=== PATIENT | female | born 1945 | race Caucasian/White ===

== ENCOUNTER → 2019-09-07 | Day surgery (SDC) | payer MEDICARE ==
[2019-09-05 16:04] LABS: BASOPHILS % 0.4 % (0.0-1.0); EOSINOPHILS % 0.1 % (0.0-6.0); HEMATOCRIT 37.9 % (34.2-44.1); HEMOGLOBIN 12.2 g/dL (12.0-16.0); LYMPHOCYTES % 18.4 % (18.0-39.1); MEAN CORPUSCULAR HEMOGLOBIN 27.9 pg (28-32); MEAN CORPUSCULAR HGB CONC 32.2 g/dL (31-35); MEAN CORPUSCULAR VOLUME 86.5 fL (81-99); MONOCYTES % 8.8 % (4.4-11.3); NEUTROPHILS # (AUTO) 7.8 (2.1-6.9); PLATELET COUNT 299 x10e3/uL (140-360); RED BLOOD COUNT 4.38 x10e6/uL (3.6-5.1); RED CELL DISTRIBUTION WIDTH 14.4 % (11.7-14.4)
[2019-09-05 16:14] LABS: INR 0.97; PROTHROMBIN TIME 13.4 seconds (11.9-14.5)
[2019-09-05 16:15] LABS: PARTIAL THROMBOPLASTIN TIME 39.3 seconds (23.8-35.5)
[2019-09-05 16:23] LABS: ALANINE AMINOTRANSFERASE 33 IU/L (0-55); ALBUMIN 4.2 g/dL (3.5-5.0); ALBUMIN/GLOBULIN RATIO 1.4 (0.8-2.0); ALKALINE PHOSPHATASE 152 IU/L (40-150); ANION GAP 17.8 mmol/L (8-16); BLOOD UREA NITROGEN 18 mg/dL (7-26); BUN/CREATININE RATIO 21 (6-25); CALCIUM 9.7 mg/dL (8.4-10.2); CARBON DIOXIDE 22 mmol/L (22-29); CHLORIDE 104 mmol/L (98-107); CREATININE, SERUM 0.85 mg/dL (0.57-1.11); EST GLOMERULAR FILTRATION RATE > 60 ML/MIN (60-); GLUCOSE 106 mg/dL (74-118); POTASSIUM 3.8 mmol/L (3.5-5.1); SODIUM 140 mmol/L (136-145)
--- NOTE | 2019-09-05 16:27 | Diagnostic Imaging Report ---
EXAMINATION: CHEST 2 VIEWS INDICATION: Pre-operative COMPARISON: None FINDINGS: LINES/TUBES:None LUNGS:The lungs are well-inflated. No focal consolidation or pulmonary edema. PLEURA:No pleural effusion or pneumothorax. MEDIASTINUM:The cardiomediastinal silhouette appears normal in size and shape. Atherosclerotic calcifications of the thoracic aorta. Postoperative findings of prior CABG. Coronary artery stent in place. BONES/SOFT TISSUES:No acute osseous injury. Sternotomy wires in place. Right proximal humerus anchor. ABDOMEN:No free air under the diaphragm. IMPRESSION: No focal pneumonia or pulmonary edema. Signed by: Pierre Douglas MD on 09/05/2019 4:25 PM
[~2019-09-07] MED LIST: AMLODIPINE BESYL5 MG PO; ASPIRIN81 MG PO; ATORVASTATIN CA20 MG PO; BRILINTA90 MG PO; CEFTRIAXONE SOD 1 GM/NS 50 ML 50 ML IV ONE; FENTANYL CITRATE/PF 100MCG/2 ML INJ ONE; HYDROCHLOROTHIA25 MG PO; LIDOCAINE HCL 2% LOCAL INJ 5 ML SDV VIAL INJ ONE; LOVENOX60 MG/0.6 SC; METOPROLOL SUCC25 MG PO; MINOCYCLINE HCL50 MG PO; NITROGLYCERIN1 EAC1 TOP; ONDANSETRON HCL INJ 2MG/ML 2ML 2 MG/ML VIAL ONE; PROPOFOL IV EMULSION 10 MG/ML 20 ML VIAL ONE; SEVOFLURANE INHAL SOLN 250 ML PEN BTL ONE
--- OUTSIDE RECORDS SUMMARY | 2019-09-07 08:15 | XMS REPORT | Summary of Care ---
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 No SOB, Rash, Urticaria or drop in BP Reddening ofSkin Iodinated Contrast- Oral Other - See Low 10/21/2011 And Iv Dye comments, Anxiety Morphine Itching, High 04/03/2010 Hallucination s Sulfa (Sulfonamide Itching 08/13/2016 Antibiotics) documented as of this encounter (statuses as of 03/30/2019) Medications End Date Status Medication Sig Dispensed Refills Start Date Active aspirin-calcium carbonate Take by 0 81 mg-300 mg calcium(777 mouth. mg) Tab Active atorvastatin 20 mg tablet Take 20 mg by 0 mouth. 6 Active Cholecalciferol, Vitamin Take 1 0 D3, 1,000 unit capsule capsule by mouth. Active hydroCHLOROthiazide 12.5 Take 12.5 mg 0 mg capsule by mouth. 6 Active nitroglycerin 0.[address] 0.4 mg 0 sublingual tablet tab under the 4 tongue every 5 minutes as needed. Active Omeprazole 20 mg tablet Take 20 mg by 0 mouth. 6 Active KCL 10 mEq tablet Take 10 mEq 0 by mouth. 6 Active ticagrelor (BRILINTA) 90 Take 100 mg 0 mg tablet by mouth 2 (two) times daily. Active Pantoprazole (PROTONIX) Take 40 mg by 0 40 mg delayed-release mouth daily. suspension Active amLODIPine 10 mg tablet Take 10 mg by 0 mouth daily. Active meloxicam (MOBIC) 15 mg Take 1 tablet 30 tablet 0 tablet by mouth 8 daily. Active traMADOL 50 mg tablet Take 50 mg by 0 mouth every 6 (six) hours as needed. documented as of this encounter (statuses as of 03/30/2019) Active Problems No known active problemsdocumented as of this encounter (statuses as of 03/30/2019) Immunizations Name Administration Dates Next Due Td 02/03/2019 documented as of this encounter Social History Date Tobacco Use Types Packs/Day Years Used Never Assessed Sex Assigned at Date Recorded Not on file Industry Job Start Date Occupation Not on file Not on file Not on file Travel End Travel History Travel Start No recent travel history available. documented as of this encounter Last Filed Vital Signs Not on filedocumented in this encounter Plan of Treatment Health Maintenance Due Date Last Done Comments HEPATITIS C (HCV) SCREEN 1945 MAMMOGRAM 1985 COLONOSCOPY 1995 Zoster Recombinant 1995 Vaccine (SHINGRIX) (1 of 2) Medicare Wellness Visit 2010 Osteoporosis Screening 2010 PNEUMOCOCCAL VACCINES 65+ 2010 (1 of 2 - PCV13) DTaP,Tdap,and Td Vaccines 02/04/2019 02/03/2019 (1 - Tdap) INFLUENZA VACCINE 04/16/2019 05/24/2014, 05/26/2013 (Retired version) documented as of this encounter Procedures Comments Procedure Name Priority Date/Time Associated Diagnosis REFERRAL- Routine 02/23/2019 REQUEST/RESPONSE 12:01 AM CDT documented in this encounter Results Not on filedocumented in this encounter Insurance Type Payer Benefit Subscriber ID Effective Phone Address Plan / Dates Group Medicare Adv PPO HUMANA - MANAGED MEDICARE HU[employer]NA [id number] 2017-P MEDICARE resent ERS documented as of this encounter
--- OUTSIDE RECORDS SUMMARY | 2019-09-07 08:16 | XMS REPORT ---
Author Author [facility] Address Unknown Phone Unavailable Care Team Providers Care Atmospheric Technician Name Role Phone Maia WALKER Unavailable Unavailable Payers Payer Name Policy Type Policy Number Effective Date Expiration Date Problems This patient has no known problems. Allergies, Adverse Reactions, Alerts Allergy Name Allergy Type Status Severity Reaction(s) Onset Date Inactive Date Treating Clinician Comments Iodinated Contrast- Oral and IV Dye DA Active [place] 2019-07-10 00:00:00 Sulfa (Sulfonamide Antibiotics) DA Active 2019-07-10 00:00:00 morphine DA Active 2019-07-10 00:00:00 codeine DA Active [place] 2019-07-10 00:00:00 clindamycin DA Active 2019-07-10 00:00:00 ciprofloxacin DA Active [place] 2019-07-10 00:00:00 ciprofloxacin DA Active [place] 2019-05-02 00:00:00 Iodinated Contrast- Oral and IV Dye DA Active [place] 2019-05-02 00:00:00 Sulfa (Sulfonamide Antibiotics) DA Active 2019-05-02 00:00:00 morphine DA Active 2019-05-02 00:00:00 clindamycin DA Active 2019-05-02 00:00:00 Sulfa (Sulfonamide Antibiotics) DA Active 2019-04-26 00:00:00 clindamycin DA Active 2019-04-26 00:00:00 Iodinated Contrast- Oral and IV Dye DA Active [place] 2013-05-24 00:00:00 morphine DA Active 2013-05-24 00:00:00 No Known Other Allergies DA Active U 2004-08-25 00:00:00 Medications This patient has no known medications. Results Test Description Test Time Test Comments Text Results Atomic Results Result Comments CHEST 2 VIEWS 2019-09-05 16:22:00 [place] [address] Patient Name: PRINCESS REAVES MR #: [id number] : 1945 Age/Sex: 74/F Req #: [id number] Adm Physician: Ordered by: ZULEYMA WALKER MD Report #: [id number] Location: OR Room/Bed: Procedure: [id number] DX/CHEST 2 VIEWS Exam Date: Exam Time: REPORT STATUS: Signed EXAMINATION: CHEST 2 VIEWS INDICATION: Pre-operative COMPARISON: None FINDINGS: LINES/TUBES:None LUNGS:The lungs are well- inflated. No focal consolidation or pulmonary edema. PLEURA:No pleural effusion or pneumothorax. MEDIASTINUM:The cardiomediastinal silhouette appears normal in size and shape. Atherosclerotic calcifications of the thoracic aorta. Postoperative findings of prior CABG. Coronary artery stent in place. BONES/SOFT TISSUES:No acute osseous injury. Sternotomy wires in place. Right proximal humerus anchor. ABDOMEN:No free air under the diaphragm. IMPRESSION: No focal pneumonia or pulmonary edema. Signed by: Key Wyatt MD on 09/05/2019 4:25 PM Dictated By: KEY WYATT MD Transcribed By: GIOVANNI on 09/05/19 162 COPY TO: ZULEYMA WALKER MD BASIC METABOLIC PANEL 2019-09-04 08:29:00 SODIUM (test code=NA) 139 mEq/L 134-147 POTASSIUM (test code=K) 4.0 mEq/L 3.4-5.0 CHLORIDE (test code=CL) 108 mEq/L 100-108 CARBON DIOXIDE (test code=CO2) 26 mEq/L 21-33 ANION GAP (test code=GAP) 9 0-20 GLUCOSE (test code=GLU) 88 mg/dL 70-110 BLOOD UREA NITROGEN (test code=BUN) 21 mg/dL 7-18 GLOMERULAR FILTRATION RATE (test code=GFR) 70.1 70-80 Units of measure=ml/min/1.73 m2 CREATININE (test code=CREAT) 0.8 mg/dL 0.6-1.3 CALCIUM (test code=CA) 9.0 mg/dL 8.0-10.5 CBC W/AUTO [id number] 07:33:00* Test Item Value Reference Range Comments WHITE BLOOD CELL (test code=WBC) 8.20 x10 3/uL 4.5-11.0 RED BLOOD CELL (test code=RBC) 4.05 x10 6/uL 3.54-5.02 HEMOGLOBIN (test code=HGB) 11.4 g/dL 11.0-15.0 HEMATOCRIT (test code=HCT) 35.0 % 33.0-45.0 MEAN CELL VOLUME (test code=MCV) 86.4 fL 81.0-99.0 MEAN CELL HGB (test code=MCH) 28.1 pg 27.0-33.0 MEAN CELL HGB CONCETRATION (test code=MCHC) 32.6 g/dL 33.0-37.0 RED CELL DISTRIBUTION WIDTH CV (test code=RDW) 14.3 % 11.5-14.5 RED CELL DISTRIBUTION WIDTH SD (test code=RDW-SD) 45.1 fL 37.0-54.0 PLATELET COUNT (test code=PLT) 273 x10 3/uL 150-400 MEAN PLATELET VOLUME (test code=MPV) 10.3 fL 7.0-9.0 NEUTROPHIL % (test code=NT%) 57.5 % 56.0-77.0 IMMATURE GRANULOCYTE % (test code=IG%) 0.4 % 0.0-2.0 LYMPHOCYTE % (test code=LY%) 32.2 % 14.0-32.0 MONOCYTE % (test code=MO%) 8.4 % 4.8-9.0 EOSINOPHIL % (test code=EO%) 1.0 % 0.3-3.7 BASOPHIL % (test code=BA%) 0.5 % 0.0-2.0 NUCLEATED RBC % (test code=NRBC%) 0.0 % 0-0 NEUTROPHIL # (test code=NT#) 4.72 x10 3/uL 2.0-7.6 IMMATURE GRANULOCYTE # (test code=IG#) 0.03 x10 3/uL 0.00-0.03 LYMPHOCYTE # (test code=LY#) 2.64 x10 3/uL 1.0-3.8 MONOCYTE # (test code=MO#) 0.69 x10 3/uL 0.1-0.8 EOSINOPHIL # (test code=EO#) 0.08 x10 3/uL 0.0-0.2 BASOPHIL # (test code=BA#) 0.04 x10 3/uL 0.0-0.2 NUCLEATED RBC # (test code=NRBC#) 0.00 x10 3/uL 0.0-0.1 MANUAL DIFF REQUIRED (test code=MDIFF) NO B-TYPE NATRIURETIC [id number] 09:45:00* Test Item Value Reference Range Comments B-TYPE NATRIURETIC PEPTIDE (test code=BNP) 105.6 PG/ML 0-100 [id number] 15:30:00* Test Item Value Reference Range Comments TROPONIN-I (test code=TROPI) < 0.015 ng/mL 0.000-0.045 Negative: <=0.045 Positive: >=0.046 Correlation with serial results, other cardiac markers andclinical findings is necessary to determine the clinicalsignificance of this result. Results using different methodologies should not be comparedto one another as quantitative results may vary by method. COMMENTS: 3 troponins total (including troponin done in ED)[id number] 12:26:00* Test Item Value Reference Range Comments TROPONIN-I (test code=TROPI) < 0.015 ng/mL 0.000-0.045 Negative: <=0.045 Positive: >=0.046 Correlation with serial results, other cardiac markers andclinical findings is necessary to determine the clinicalsignificance of this result. Results using different methodologies should not be comparedto one another as quantitative results may vary by method. COMMENTS: 3 troponins total (including troponin done in ED)B-TYPE NATRIURETIC [id number] 10:18:00* Test Item Value Reference Range Comments B-TYPE NATRIURETIC PEPTIDE (test code=BNP) 104.5 PG/ML 0-100 - XR CHEST 1 [id number] 10:14:00 FAX: Ronald Padron MD [phone] [place]: St: REG Name: PRINCESS HARDEN [facility] : [birth year] Age/S: 74/F [address] [place] [address] Unit #: [id number] Loc: [facility] [place] [address] Phys: Hadley Delcid MD Acct: [id number] Dis Date: Status: REG ER PHONE #: [phone] Exam Date: 09/02/2019937 FAX #: [phone] Reason: Weakness EXAMS: CPT CODE: [id number] XR CHEST 1 V 14021 EXAMINATION: Chest one view 09/02/2019 at 0934 hours. CLINICAL HISTORY: Weakness. COMP ARISON: Chest x-ray 08/15/2019. FINDINGS: The cardiomediastinal silhouette is within normal limits and stable in appearance. Pulmonary va sculature is within normal limits. The lungs are clear. Pos tsurgical hardware is evident projected over the right proximal humerus. Sternotomy wires are evident. IMPRESSION: No acute radiographic abnormalities in the chest. at 1014 Reported and signed by: Jewels Alfaro M.D. CC: Ronald Worley MD [facility] gist: VIVIAN Montero RT(R); Anna Major, RT(R) Trnscrd Date/Time/B y: 09/02/2019 (1014) : By: [facility] [place] [facility] Orig Print D/T: S: 09/02/2019 (06 01) PAGE 1 Signed Report COMPREHENSIVE METABOLIC [id number] 10:06:00* Test Item Value Reference Range Comments SODIUM (test code=NA) 140 mEq/L 134-147 POTASSIUM (test code=K) 3.7 mEq/L 3.4-5.0 CHLORIDE (test code=CL) 107 mEq/L 100-108 CARBON DIOXIDE (test code=CO2) 26 mEq/L 21-33 ANION GAP (test code=GAP) 11 0-20 GLUCOSE (test code=GLU) 115 mg/dL 70-110 BLOOD UREA NITROGEN (test code=BUN) 18 mg/dL 7-18 GLOMERULAR FILTRATION RATE (test code=GFR) 61.2 70-80 Units of measure=ml/min/1.73 m2 CREATININE (test code=CREAT) 0.9 mg/dL 0.6-1.3 TOTAL PROTEIN (test code=PROT) 7.8 g/dL 6.4-8.2 ALBUMIN (test code=ALB) 4.10 g/dL 3.4-5.0 CALCIUM (test code=CA) 9.5 mg/dL 8.0-10.5 BILIRUBIN TOTAL (test code=BILT) 0.5 MG/DL <1.5 SGOT/AST (test code=AST) 16 IUnit/L 15-37 SGPT/ALT (test code=ALT) 25 IUnit/L 15-65 ALKALINE PHOSPHATASE TOTAL (test code=ALKP) 155 IUnit/L 20-125 [id number] 10:06:00* Test Item Value Reference Range Comments TROPONIN-I (test code=TROPI) < 0.015 ng/mL 0.000-0.045 Negative: <=0.045 Positive: >=0.046 Correlation with serial results, other cardiac markers andclinical findings is necessary to determine the clinicalsignificance of this result. Results using different methodologies should not be comparedto one another as quantitative results may vary by method. - CT HEAD/BRAIN W/O [id number] 10:02:00 Name: PRINCESS REAVES [facility] : 1945 Age/S: 74 / F [address] [place] [address] Unit #: [id number] Loc: [place] [address] Phys: Hadley Delcid MD Acct: [id number] Dis Date: Status: REG ER PHONE #: [phone] Exam Date: 09/02/2019925 FAX #: [phone] Reason: NEAR SYNCOPE EXAMS: CPT CODE: [id number] CT HEAD/BRAIN W/O CONT 65250 STUDY: - CT HEAD/BRAIN W/O CONT 09/02/2019 9:08 AM Ordering Physician: Hadley Delcid MD Patient Name: PRINCESS REAVES MR: [id number] : 1945; Age: 74 years y/o Female Clinical Indication: NEAR SYNCOPE Comparison: None TECHNIQUE: Multiple contiguous transaxial noncontrast CT images were obtained through the head. Coronal and sagittal reformatted images were prepared. DOSE: CT imaging performed at this location utilizes radiation dose optimization technique which includes one or more of the followin) Automated exposure control; 2) Adjustment of the mA and/or kV according to patient's size; 3) Use of iterative reconstruction techniques. DLP (mGy-cm): 419 FINDINGS: BRAIN PARENCHYMA: Mild diffuse age-appropriate atrophy is present associated with mild nonspecific periventricular low attenuation most consistent with old microangiopathic ischemic change. 1.2 cm calc ified extra-axial lesion in the right posterior fossa along the right tent orium and mastoid segment of the temporal bone, favored to represent a men ingioma. No evidence of acute intracranial hemorrhage, mass lesion, mass effect, midline shift, or extra-axial fluid collection. VENTR ICLES: The lateral ventricles, third ventricle, fourth ventricle, and basi lar cisterns are appropriate for degree of atrophy present. PARANA CLOVIS SINUSES: The visualized portions of the paranasal sinuses are clear. MASTOIDS: Clear. ORBITS: The visualized portions of t he orbits are normal. SOFT TISSUES: No significant abnormality. PAGE 1 Signed Report (CONTIN UED) Name: PRINCESS REAVES [facility] Anitha Lozano : 1945 Age/S: 74 / F [address] [place] [address] Unit #: [id number] Loc: [place] [address] Phys: Hadley Aparicio MD Acct: [id number] Dis Date: Status: REG ER PHONE #: [phone] Exam Date: 09/02/2019925 FAX #: Reason: NEAR SYNCOPE EXAMS: CPT CODE: [id number] CT HEAD/ BRAIN W/O CONT 99397 <Continued> SKULL: No acute fracture or suspicious osseous lesion. IMPRESSION: 1. No acute intracranial abnormality. 2. Mild generalized volume loss and chronic small vessel ischemic changes in the supratentorial white matter. 3. 1.2 cm calcified mening ioma in the right posterior fossa. SL: CL [id number] at 1002 Reported and signed by: Matt Lloyd M.D. CC: Ronald Hall echnologist:Nicol Ramos, RT(R)(CT) CTDI: DLP: Trnscb Date /Time: 09/02/2019 (1002) [email or web address] Orig Print D/T: S: (1006) PAGE 2 Signed Report COMPREHENSIVE METABOLIC [id number] 09:45:00* Test Item Value Reference Range Comments SODIUM (test code=NA) 140 mEq/L 134-147 POTASSIUM (test code=K) 3.7 mEq/L 3.4-5.0 CHLORIDE (test code=CL) 107 mEq/L 100-108 CARBON DIOXIDE (test code=CO2) 26 mEq/L 21-33 ANION GAP (test code=GAP) 11 0-20 GLUCOSE (test code=GLU) 115 mg/dL 70-110 BLOOD UREA NITROGEN (test code=BUN) 18 mg/dL 7-18 GLOMERULAR FILTRATION RATE (test code=GFR) 61.2 70-80 Units of measure=ml/min/1.73 m2 CREATININE (test code=CREAT) 0.9 mg/dL 0.6-1.3 TOTAL PROTEIN (test code=PROT) 7.8 g/dL 6.4-8.2 ALBUMIN (test code=ALB) 4.10 g/dL 3.4-5.0 CALCIUM (test code=CA) 9.5 mg/dL 8.0-10.5 BILIRUBIN TOTAL (test code=BILT) MG/DL <1.5 SGOT/AST (test code=AST) 16 IUnit/L 15-37 SGPT/ALT (test code=ALT) 25 IUnit/L 15-65 ALKALINE PHOSPHATASE TOTAL (test code=ALKP) 155 IUnit/L 20-125 [id number] 09:45:00* Test Item Value Reference Range Comments TROPONIN-I (test code=TROPI) < 0.015 ng/mL 0.000-0.045 Negative: <=0.045 Positive: >=0.046 Correlation with serial results, other cardiac markers andclinical findings is necessary to determine the clinicalsignificance of this result. Results using different methodologies should not be comparedto one another as quantitative results may vary by method. COMPREHENSIVE METABOLIC [id number] 09:40:00* Test Item Value Reference Range Comments SODIUM (test code=NA) mEq/L 134-147 POTASSIUM (test code=K) mEq/L 3.4-5.0 CHLORIDE (test code=CL) mEq/L 100-108 CARBON DIOXIDE (test code=CO2) mEq/L 21-33 ANION GAP (test code=GAP) 0-20 GLUCOSE (test code=GLU) mg/dL 70-110 BLOOD UREA NITROGEN (test code=BUN) mg/dL 7-18 GLOMERULAR FILTRATION RATE (test code=GFR) 70-80 CREATININE (test code=CREAT) mg/dL 0.6-1.3 TOTAL PROTEIN (test code=PROT) g/dL 6.4-8.2 ALBUMIN (test code=ALB) g/dL 3.4-5.0 CALCIUM (test code=CA) mg/dL 8.0-10.5 BILIRUBIN TOTAL (test code=BILT) MG/DL <1.5 SGOT/AST (test code=AST) IUnit/L 15-37 SGPT/ALT (test code=ALT) IUnit/L 15-65 ALKALINE PHOSPHATASE TOTAL (test code=ALKP) IUnit/L 20-125 [id number] 09:40:00* Test Item Value Reference Range Comments TROPONIN-I (test code=TROPI) < 0.015 ng/mL 0.000-0.045 Negative: <=0.045 Positive: >=0.046 Correlation with serial results, other cardiac markers andclinical findings is necessary to determine the clinicalsignificance of this result. Results using different methodologies should not be comparedto one another as quantitative results may vary by method. CBC W/AUTO [id number] 09:32:00* Test Item Value Reference Range Comments WHITE BLOOD CELL (test code=WBC) 5.84 x10 3/uL 4.5-11.0 RED BLOOD CELL (test code=RBC) 4.45 x10 6/uL 3.54-5.02 HEMOGLOBIN (test code=HGB) 12.5 g/dL 11.0-15.0 HEMATOCRIT (test code=HCT) 38.7 % 33.0-45.0 MEAN CELL VOLUME (test code=MCV) 87.0 fL 81.0-99.0 MEAN CELL HGB (test code=MCH) 28.1 pg 27.0-33.0 MEAN CELL HGB CONCETRATION (test code=MCHC) 32.3 g/dL 33.0-37.0 RED CELL DISTRIBUTION WIDTH CV (test code=RDW) 14.4 % 11.5-14.5 RED CELL DISTRIBUTION WIDTH SD (test code=RDW-SD) 45.5 fL 37.0-54.0 PLATELET COUNT (test code=PLT) 291 x10 3/uL 150-400 MEAN PLATELET VOLUME (test code=MPV) 9.9 fL 7.0-9.0 NEUTROPHIL % (test code=NT%) 64.1 % 56.0-77.0 IMMATURE GRANULOCYTE % (test code=IG%) 0.3 % 0.0-2.0 LYMPHOCYTE % (test code=LY%) 27.7 % 14.0-32.0 MONOCYTE % (test code=MO%) 6.0 % 4.8-9.0 EOSINOPHIL % (test code=EO%) 1.0 % 0.3-3.7 BASOPHIL % (test code=BA%) 0.9 % 0.0-2.0 NUCLEATED RBC % (test code=NRBC%) 0.0 % 0-0 NEUTROPHIL # (test code=NT#) 3.74 x10 3/uL 2.0-7.6 IMMATURE GRANULOCYTE # (test code=IG#) 0.02 x10 3/uL 0.00-0.03 LYMPHOCYTE # (test code=LY#) 1.62 x10 3/uL 1.0-3.8 MONOCYTE # (test code=MO#) 0.35 x10 3/uL 0.1-0.8 EOSINOPHIL # (test code=EO#) 0.06 x10 3/uL 0.0-0.2 BASOPHIL # (test code=BA#) 0.05 x10 3/uL 0.0-0.2 NUCLEATED RBC # (test code=NRBC#) 0.00 x10 3/uL 0.0-0.1 MANUAL DIFF REQUIRED (test code=MDIFF) NO - XR CHEST 2 [id number] 12:17:00 FAX: Ronald Padron MD [phone] [place]: St: REG FAX: Aryan Hess MD [phone] Name: PRINCESS REAVES [facility] : 1945 Age/S: 74/F [address] [place] [address] Unit #: [id number] Loc: [place] [address] Phys: Aryan Murguia MD Acct: [id number] Dis Date: Status: REG CLI PHONE #: [phone] Exam Date: 08/15/2019 1214 FAX #: [phone] Reason: J44.9, COPD. EXAMS: CPT CODE: [id number] XR CHEST 2 V 09137 2 VIEW CXR HISTORY: COPD. Cough and fever. COMPARISON: 07/10/2019 chest x-ray. Mild flattening of the hemidiaphragms indicating pulmonary hyperinflation. No pleural a bnormalities. Lungs are free of infiltrate. Cardiomediastinal silhouette and bony thorax normal. Sternal suture wires in place. I MPRESSION: Pulmonary hyperinflation otherwise normal exam. END IMPRESSION [id number] Electronically Signed by Gabi Scott on 1 at 1217 Reported and signed by: Danyell Scott M.D. CC: Ronald Worley MD; Aryan Murguia MD Technologist: Malorie Ariza RT(R) Trnscrd Date/Time/By: 08/15/2019 (2797) : By: B Orig Print D/T : S: 08/15/2019 (6420) PAGE 1 Sig jordy Report BASIC METABOLIC [id number] 17:30:00* Test Item Value Reference Range Comments SODIUM (test code=NA) 141 mEq/L 134-147 POTASSIUM (test code=K) 4.1 mEq/L 3.4-5.0 CHLORIDE (test code=CL) 111 mEq/L 100-108 CARBON DIOXIDE (test code=CO2) 27 mEq/L 21-33 ANION GAP (test code=GAP) 7 0-20 GLUCOSE (test code=GLU) 100 mg/dL 70-110 BLOOD UREA NITROGEN (test code=BUN) 19 mg/dL 7-18 GLOMERULAR FILTRATION RATE (test code=GFR) 70.1 70-80 Units of measure=ml/min/1.73 m2 CREATININE (test code=CREAT) 0.8 mg/dL 0.6-1.3 CALCIUM (test code=CA) 8.8 mg/dL 8.0-10.5 BASIC METABOLIC [id number] 17:23:00* Test Item Value Reference Range Comments SODIUM (test code=NA) 141 mEq/L 134-147 POTASSIUM (test code=K) 4.1 mEq/L 3.4-5.0 CHLORIDE (test code=CL) 111 mEq/L 100-108 CARBON DIOXIDE (test code=CO2) 27 mEq/L 21-33 ANION GAP (test code=GAP) 7 0-20 GLUCOSE (test code=GLU) 100 mg/dL 70-110 BLOOD UREA NITROGEN (test code=BUN) 19 mg/dL 7-18 GLOMERULAR FILTRATION RATE (test code=GFR) 70-80 CREATININE (test code=CREAT) mg/dL 0.6-1.3 CALCIUM (test code=CA) 8.8 mg/dL 8.0-10.5 CBC W/AUTO [id number] 17:17:00* Test Item Value Reference Range Comments WHITE BLOOD CELL (test code=WBC) 8.34 x10 3/uL 4.5-11.0 RED BLOOD CELL (test code=RBC) 4.40 x10 6/uL 3.54-5.02 HEMOGLOBIN (test code=HGB) 12.1 g/dL 11.0-15.0 HEMATOCRIT (test code=HCT) 38.5 % 33.0-45.0 MEAN CELL VOLUME (test code=MCV) 87.5 fL 81.0-99.0 MEAN CELL HGB (test code=MCH) 27.5 pg 27.0-33.0 MEAN CELL HGB CONCETRATION (test code=MCHC) 31.4 g/dL 33.0-37.0 RED CELL DISTRIBUTION WIDTH CV (test code=RDW) 14.8 % 11.5-14.5 RED CELL DISTRIBUTION WIDTH SD (test code=RDW-SD) 47.1 fL 37.0-54.0 PLATELET COUNT (test code=PLT) 279 x10 3/uL 150-400 MEAN PLATELET VOLUME (test code=MPV) 9.9 fL 7.0-9.0 NEUTROPHIL % (test code=NT%) 65.6 % 56.0-77.0 IMMATURE GRANULOCYTE % (test code=IG%) 0.5 % 0.0-2.0 LYMPHOCYTE % (test code=LY%) 23.1 % 14.0-32.0 MONOCYTE % (test code=MO%) 9.2 % 4.8-9.0 EOSINOPHIL % (test code=EO%) 1.0 % 0.3-3.7 BASOPHIL % (test code=BA%) 0.6 % 0.0-2.0 NUCLEATED RBC % (test code=NRBC%) 0.0 % 0-0 NEUTROPHIL # (test code=NT#) 5.47 x10 3/uL 2.0-7.6 IMMATURE GRANULOCYTE # (test code=IG#) 0.04 x10 3/uL 0.00-0.03 LYMPHOCYTE # (test code=LY#) 1.93 x10 3/uL 1.0-3.8 MONOCYTE # (test code=MO#) 0.77 x10 3/uL 0.1-0.8 EOSINOPHIL # (test code=EO#) 0.08 x10 3/uL 0.0-0.2 BASOPHIL # (test code=BA#) 0.05 x10 3/uL 0.0-0.2 NUCLEATED RBC # (test code=NRBC#) 0.00 x10 3/uL 0.0-0.1 MANUAL DIFF REQUIRED (test code=MDIFF) NO TROPONIN-I [id number] 17:14:00* Test Item Value Reference Range Comments TROPONIN-I RAPID (test code=TROPIRAP) 0.01 ng/mL 0.00-0.08 Performed by certified mobile plant operators at [facility] Negative: <=0.08 Positive: >=0.09An elevated troponin value alone is not sufficient todiagnose a myocardial infarction. Rather, the patient sclinical presentation (history, physical exam) and ECGshould be used in conjunction with troponin in thediagnostic evaluation of suspected myocardial infarction. Aserial sampling protocol is recommended to facilitate the identification of temporal changes in troponin levels characteristic of [place]. - XR CHEST 1 [id number] 15:43:00 FAX: Ronald Padron MD [phone] [place]: St: PRE FAX: Anai Pat [phone] Name: PRINCESS REAVES [facility] : 1945 Age/S: 74/F [address] [place] [address] Unit #: [id number] Loc: [place] [address] Phys: Anai Melendez Acct: [id number] Dis Date: Status: PRE ER PHONE #: [phone] Exam Date: 07/10/2019 1537 FAX #: [phone] Reason: Chest Pain EXAMS: CPT CODE: [id number] XR CHEST 1 V 78724 CHEST, ONE VIEW: HISTORY: Acute chest pain. COMPARISON EXAM(S): Back to May 2013 FINDINGS: This single portable view was obtained at 1530 hours on 07/10/2019 and shows mild, stable cardiomegaly with postsurgical changes in the sternum and mediastinum. No acute infiltrates or effusions. Mild chronic pleural thickening along the right lateral pleural surface. No acute skeletal abnormality. An orthopedic anchor is projected over the right humeral head. IMPRESSION: 1. No acute changes. 2. Stable appearance of the chest compared to 05/02/2019. 3. Stable, mild cardiomegaly. SL:01 at 1543 Re ported and signed by: Escobar Natarajan M.D. CC: Ronald Del Rosario; Anai SANCHEZ Technologist: VIVIAN Montero RT(R) Trnscrd Date/Time/By: 07/10/2019 (3727) : By: Jolene Orig Print D/T: S: 07/10/2019 (1704) PAGE 1 Signed Report CBC W/AUTO DIFF 2019-05-03 08:08:00* Test Item Value Reference Range Comments WHITE BLOOD CELL (test code=WBC) 10.02 x10 3/uL 4.5-11.0 RED BLOOD CELL (test code=RBC) 4.08 x10 6/uL 3.54-5.02 HEMOGLOBIN (test code=HGB) 11.3 g/dL 11.0-15.0 HEMATOCRIT (test code=HCT) 36.2 % 33.0-45.0 MEAN CELL VOLUME (test code=MCV) 88.7 fL 81.0-99.0 MEAN CELL HGB (test code=MCH) 27.7 pg 27.0-33.0 MEAN CELL HGB CONCETRATION (test code=MCHC) 31.2 g/dL 33.0-37.0 RED CELL DISTRIBUTION WIDTH CV (test code=RDW) 15.0 % 11.5-14.5 RED CELL DISTRIBUTION WIDTH SD (test code=RDW-SD) 49.1 fL 37.0-54.0 PLATELET COUNT (test code=PLT) 321 x10 3/uL 150-400 MEAN PLATELET VOLUME (test code=MPV) 10.3 fL 7.0-9.0 NEUTROPHIL % (test code=NT%) 70.2 % 56.0-77.0 IMMATURE GRANULOCYTE % (test code=IG%) 0.6 % 0.0-2.0 LYMPHOCYTE % (test code=LY%) 18.6 % 14.0-32.0 MONOCYTE % (test code=MO%) 9.7 % 4.8-9.0 EOSINOPHIL % (test code=EO%) 0.6 % 0.3-3.7 BASOPHIL % (test code=BA%) 0.3 % 0.0-2.0 NUCLEATED RBC % (test code=NRBC%) 0.0 % 0-0 NEUTROPHIL # (test code=NT#) 7.04 x10 3/uL 2.0-7.6 IMMATURE GRANULOCYTE # (test code=IG#) 0.06 x10 3/uL 0.00-0.03 LYMPHOCYTE # (test code=LY#) 1.86 x10 3/uL 1.0-3.8 MONOCYTE # (test code=MO#) 0.97 x10 3/uL 0.1-0.8 EOSINOPHIL # (test code=EO#) 0.06 x10 3/uL 0.0-0.2 BASOPHIL # (test code=BA#) 0.03 x10 3/uL 0.0-0.2 NUCLEATED RBC # (test code=NRBC#) 0.00 x10 3/uL 0.0-0.1 MANUAL DIFF REQUIRED (test code=MDIFF) NO BASIC METABOLIC [id number] 07:50:00* Test Item Value Reference Range Comments SODIUM (test code=NA) 140 mEq/L 134-147 POTASSIUM (test code=K) 4.3 mEq/L 3.4-5.0 CHLORIDE (test code=CL) 109 mEq/L 100-108 CARBON DIOXIDE (test code=CO2) 25 mEq/L 21-33 ANION GAP (test code=GAP) 10 0-20 GLUCOSE (test code=GLU) 102 mg/dL 70-110 BLOOD UREA NITROGEN (test code=BUN) 13 mg/dL 7-18 GLOMERULAR FILTRATION RATE (test code=GFR) 70.1 70-80 Units of measure=ml/min/1.73 m2 CREATININE (test code=CREAT) 0.8 mg/dL 0.6-1.3 CALCIUM (test code=CA) 8.8 mg/dL 8.0-10.5 [id number] 23:07:00* Test Item Value Reference Range Comments TROPONIN-I (test code=TROPI) < 0.015 ng/mL 0.000-0.045 Negative: <=0.045 Positive: >=0.046 Correlation with serial results, other cardiac markers andclinical findings is necessary to determine the clinicalsignificance of this result. Results using different methodologies should not be comparedto one another as quantitative results may vary by method. COMMENTS: 3 troponins total (including troponin done in ED)[id number] 18:02:00* Test Item Value Reference Range Comments TROPONIN-I (test code=TROPI) < 0.015 ng/mL 0.000-0.045 Negative: <=0.045 Positive: >=0.046 Correlation with serial results, other cardiac markers andclinical findings is necessary to determine the clinicalsignificance of this result. Results using different methodologies should not be comparedto one another as quantitative results may vary by method. COMMENTS: 3 troponins total (including troponin done in ED)B-TYPE NATRIURETIC [id number] 16:13:00* Test Item Value Reference Range Comments B-TYPE NATRIURETIC PEPTIDE (test code=BNP) 131.2 PG/ML 0-100 URINALYSIS [id number] 16:12:00* Test Item Value Reference Range Comments UA COLOR (test code=COLU) YELLOW YEL/STRAW UA APPEARANCE (test code=APPU) CLEAR CLEAR UA GLUCOSE DIPSTICK (test code=DGLUU) NEGATIVE NEGATIVE UA BILIRUBIN DIPSTICK (test code=BILU) NEGATIVE NEGATIVE UA KETONE DIPSTICK (test code=KETU) NEGATIVE NEGATIVE UA SPECIFIC GRAVITY (test code=SGU) 1.009 1.005-1.030 UA BLOOD DIPSTICK (test code=CARLYLE) 1+ NEGATIVE UA PH DIPSTICK (test code=ADILENE) 5.0 5.0-7.0 UA PROTEIN DIPSTICK (test code=PROU) NEGATIVE NEGATIVE UA UROBILINIOGEN DIPSTICK (test code=URO) 0.2 mg/dL 0.2-1.0 UA NITRITE DIPSTICK (test code=ASHOK) NEGATIVE NEGATIVE UA LEUKOCYTE ESTERASE DIPSTICK (test code=LEUU) NEGATIVE NEGATIVE UA RBC (test code=RBCU) 4-10 RBC/HPF 0-3 UA WBC NO REFLEX (test code=WBCUCL) 0-3 WBC/HPF 0-3 UA BACTERIA (test code=BACU) NONE SEEN /HPF NONE SEEN UA SQUAMOUS CELLS (test code=SQU) 0-5 /HPF NONE SEEN UA MUCUS (test code=MUCU) TRACE /LPF NONE SEEN BASIC METABOLIC [id number] 16:09:00* Test Item Value Reference Range Comments SODIUM (test code=NA) 139 mEq/L 134-147 POTASSIUM (test code=K) 3.9 mEq/L 3.4-5.0 CHLORIDE (test code=CL) 106 mEq/L 100-108 CARBON DIOXIDE (test code=CO2) 26 mEq/L 21-33 ANION GAP (test code=GAP) 11 0-20 GLUCOSE (test code=GLU) 111 mg/dL 70-110 BLOOD UREA NITROGEN (test code=BUN) 16 mg/dL 7-18 GLOMERULAR FILTRATION RATE (test code=GFR) 70.1 70-80 Units of measure=ml/min/1.73 m2 CREATININE (test code=CREAT) 0.8 mg/dL 0.6-1.3 CALCIUM (test code=CA) 9.3 mg/dL 8.0-10.5 [id number] 16:09:00* Test Item Value Reference Range Comments LIPASE (test code=LIP) 307 IUnit/L 73-393 [id number] 16:09:00* Test Item Value Reference Range Comments TROPONIN-I (test code=TROPI) < 0.015 ng/mL 0.000-0.045 Negative: <=0.045 Positive: >=0.046 Correlation with serial results, other cardiac markers andclinical findings is necessary to determine the clinicalsignificance of this result. Results using different methodologies should not be comparedto one another as quantitative results may vary by method. CBC W/AUTO [id number] 15:50:00* Test Item Value Reference Range Comments WHITE BLOOD CELL (test code=WBC) 10.95 x10 3/uL 4.5-11.0 RED BLOOD CELL (test code=RBC) 4.56 x10 6/uL 3.54-5.02 HEMOGLOBIN (test code=HGB) 12.4 g/dL 11.0-15.0 HEMATOCRIT (test code=HCT) 39.7 % 33.0-45.0 MEAN CELL VOLUME (test code=MCV) 87.1 fL 81.0-99.0 MEAN CELL HGB (test code=MCH) 27.2 pg 27.0-33.0 MEAN CELL HGB CONCETRATION (test code=MCHC) 31.2 g/dL 33.0-37.0 RED CELL DISTRIBUTION WIDTH CV (test code=RDW) 14.9 % 11.5-14.5 RED CELL DISTRIBUTION WIDTH SD (test code=RDW-SD) 47.8 fL 37.0-54.0 PLATELET COUNT (test code=PLT) 362 x10 3/uL 150-400 MEAN PLATELET VOLUME (test code=MPV) 10.0 fL 7.0-9.0 NEUTROPHIL % (test code=NT%) 76.7 % 56.0-77.0 IMMATURE GRANULOCYTE % (test code=IG%) 0.8 % 0.0-2.0 LYMPHOCYTE % (test code=LY%) 14.0 % 14.0-32.0 MONOCYTE % (test code=MO%) 7.6 % 4.8-9.0 EOSINOPHIL % (test code=EO%) 0.5 % 0.3-3.7 BASOPHIL % (test code=BA%) 0.4 % 0.0-2.0 NUCLEATED RBC % (test code=NRBC%) 0.0 % 0-0 NEUTROPHIL # (test code=NT#) 8.40 x10 3/uL 2.0-7.6 IMMATURE GRANULOCYTE # (test code=IG#) 0.09 x10 3/uL 0.00-0.03 LYMPHOCYTE # (test code=LY#) 1.53 x10 3/uL 1.0-3.8 MONOCYTE # (test code=MO#) 0.83 x10 3/uL 0.1-0.8 EOSINOPHIL # (test code=EO#) 0.06 x10 3/uL 0.0-0.2 BASOPHIL # (test code=BA#) 0.04 x10 3/uL 0.0-0.2 NUCLEATED RBC # (test code=NRBC#) 0.00 x10 3/uL 0.0-0.1 MANUAL DIFF REQUIRED (test code=MDIFF) NO TROPONIN-I [id number] 15:34:00* Test Item Value Reference Range Comments TROPONIN-I RAPID (test code=TROPIRAP) 0.00 ng/mL 0.00-0.08 Performed by certified mobile plant operators at [facility] Negative: <=0.08 Positive: >=0.09An elevated troponin value alone is not sufficient todiagnose a myocardial infarction. Rather, the patient sclinical presentation (history, physical exam) and ECGshould be used in conjunction with troponin in thediagnostic evaluation of suspected myocardial infarction. Aserial sampling protocol is recommended to facilitate the identification of temporal changes in troponin levels characteristic of [place]. CHEMISTRY 8 [id number] 15:34:00* Test Item Value Reference Range Comments ISTAT-SODIUM (test code=NAP) MMOL/L 134-147 ISTAT-POTASSIUM (test code=KP) MMOL/L 3.4-5.0 ISTAT-CHLORIDE (test code=CLP) MMOL/L 100-108 ISTAT CARBON DIOXIDE (test code=ISTAT-CO2) mmol/L 21-33 ISTAT CALCIUM IONIZED (test code=ISTAT-MALINI) MG/DL 1.12-1.32 ISTAT-GLUCOSE (test code=GLUP) MG/DL 70-110 ISTAT-BUN (test code=BUNP) MG/DL 7-18 BEDSIDE CREATININE (test code=CREATBED) MG/DL 0.6-1.3 GLOMERULAR FILTRATION RATE POC (test code=GFRBED) 75 ML/MIN CHEMISTRY 8 [id number] 15:34:00* Test Item Value Reference Range Comments ISTAT-SODIUM (test code=NAP) 138 MMOL/L 134-147 ISTAT-POTASSIUM (test code=KP) 4.1 MMOL/L 3.4-5.0 ISTAT-CHLORIDE (test code=CLP) 103 MMOL/L 100-108 Performed by certified mobile plant operators at [facility] ISTAT CARBON DIOXIDE (test code=ISTAT-CO2) 23.0 mmol/L 21-33 ISTAT CALCIUM IONIZED (test code=ISTAT-MALINI) 1.12 MG/DL 1.12-1.32 ISTAT-GLUCOSE (test code=GLUP) 112 MG/DL 70-110 ISTAT-BUN (test code=BUNP) 15 MG/DL 7-18 BEDSIDE CREATININE (test code=CREATBED) 0.8 MG/DL 0.6-1.3 GLOMERULAR FILTRATION RATE POC (test code=GFRBED) 75 ML/MIN - XR CHEST 1 [id number] 14:30:00 FAX: Ronald Padron MD [phone] [place]: St: PRE FAX: Rizwan Tipton MD [phone] Name: PRINCESS REAVES [facility] : 1945 Age/S: 74/F [address] [place] [address] Unit #: [id number] Loc: [place] [address] Phys: Rizwan Tipton MD Acct: [id number] Dis Date: Status: PRE ER PHONE #: [phone] Exam Date: 05/02/2019 1424 FAX #: [phone] Reason: Chest Pain EXAMS: CPT CODE: [id number] XR CHEST 1 V 27497 CHEST, ONE VIEW: HISTORY: Acute chest pain. COMPARISON EXAM(S): Back to May 2013 FINDINGS: This single portable view was obtained at 1421 hours on 05/02/2019 and shows mild, stable cardiomegaly with postsurgical changes noted in the sternum. No acute infiltrates, effusions or pneumothorax. Chronic pleural thickening is noted along the right lateral pleural surface. Orthopedic anchor is projected through the right humeral head. No acute skeletal ab normalities. IMPRESSION: 1. No acute c hanges. 2. Stable appearance of the chest dating back to August 2018. 3. Stable, mild cardiomegaly. SL:01 at 1430 Reported and signed by: Escobar Natarajan M.D. CC: Ronald Worley MD; Rizwan Tipton MD Technologist: RT Onel(R) Trnscrd Date/Time/By: 05/02/2019 ( 1430) : By: Jolnee Orig Print D/T: S: 05/02/2019 (5333) PAGE 1 Signed Report BASIC METABOLIC [id number] 05:19:00* Test Item Value Reference Range Comments SODIUM (test code=NA) 139 mEq/L 134-147 POTASSIUM (test code=K) 3.6 mEq/L 3.4-5.0 CHLORIDE (test code=CL) 108 mEq/L 100-108 CARBON DIOXIDE (test code=CO2) 23 mEq/L 21-33 ANION GAP (test code=GAP) 12 0-20 GLUCOSE (test code=GLU) 189 mg/dL 70-110 BLOOD UREA NITROGEN (test code=BUN) 17 mg/dL 7-18 GLOMERULAR FILTRATION RATE (test code=GFR) 54.2 70-80 Units of measure=ml/min/1.73 m2 CREATININE (test code=CREAT) 1.0 mg/dL 0.6-1.3 CALCIUM (test code=CA) 8.9 mg/dL 8.0-10.5 [id number] 10:57:00* Test Item Value Reference Range Comments ACT-ISTAT (test code=ACTI) 389 SEC 74-137 Performed by certified mobile plant operators at [facility] [id number] 10:18:00* Test Item Value Reference Range Comments ACT-ISTAT (test code=ACTI) 428 SEC 74-137 Performed by certified mobile plant operators at [facility] BASIC METABOLIC [id number] 12:49:00* Test Item Value Reference Range Comments SODIUM (test code=NA) 141 mEq/L 134-147 POTASSIUM (test code=K) 4.2 mEq/L 3.4-5.0 CHLORIDE (test code=CL) 109 mEq/L 100-108 CARBON DIOXIDE (test code=CO2) 28 mEq/L 21-33 ANION GAP (test code=GAP) 8 0-20 GLUCOSE (test code=GLU) 93 mg/dL 70-110 BLOOD UREA NITROGEN (test code=BUN) 15 mg/dL 7-18 GLOMERULAR FILTRATION RATE (test code=GFR) 61.2 70-80 Units of measure=ml/min/1.73 m2 CREATININE (test code=CREAT) 0.9 mg/dL 0.6-1.3 CALCIUM (test code=CA) 9.2 mg/dL 8.0-10.5 - XR CHEST 2 [id number] 12:49:00 FAX: Ronald Padron MD [phone] [place]: St: PRE FAX: Christiano Arroyo [phone] Name: PRINCESS REAVES [facility] : 1945 Age/S: 74/F [address] [place] [address] Unit #: [id number] Loc: [place] [address] Phys: Christiano Elias MD Acct: [id number] Dis Date: Status: PRE SDC PHONE #: [phone] Exam Date: 04/26/2019 1139 FAX #: [phone] Reason: PRE-OP [facility] EXAMS: CPT CODE: [id number] XR CHEST 2 V 10090 PROCEDURE: CHEST TWO VIEW INDICATION: Preoperative evaluation. Positive stress test. COMPARISON: Chest 2 views 09/08/2018 FINDINGS: Cardiovascular: Normal cardiac silhouette. Normal thoracic aorta. Mediastinum: No mediastinal or hilar lymphadenopathy. Lungs: No focal consolidation. No parenchymal mass. Pleura: No pleural effusion. No pneumothorax. Bones: No acute osseous abnormality. Median sternotomy wires. Postoper ative changes of the right shoulder. IMPRESSION: No acute radiographic abnormality. SL: [id number] at 0511 Reported and signed by: Marky Marie M.D. CC: Ronald Worley MD; Christiano Elias MD Technologist: RT Arabella(Geoff) Trnscrd Date/Time/By: 04/26/2019 (5620) : By: [id number] Orig Print D/T: S: 04/26/2019 (0118) PAGE 1 Signed Report PROTHROMBIN [id number] 12:48:00* Test Item Value Reference Range Comments PROTHROMBIN TIME PATIENT (test code=PTP) 12.7 SECONDS 9.3-12.9 INTERNATIONAL NORMAL RATIO (test code=INR) 1.1 0.8-1.2 TARGET INR BY INDICATION Indication INR1. Prophylaxis of venous thrombosis 2.0 - 3.0 (orthopedic surgery), Prophylaxis of venous thrombosis (other than high-risk surgery), Treatment of Deep Vein Thrombosis/Pulmonary Embolism, Prevention of systemic embolism - Tissue heart valves, Acute Myocardial Infarction (to prevent systemic embolism), Valvular heart disease, Atrial Fibrillation, Bileaflet mechanical valve in aortic position.2. Mechanical prosthetic valves (high risk), 2.5 - 3.5 Presence of Lupus Anticoagulant or Antiphospholipid Antibodies, Prevention of systemic embolism - Acute Myocardial Infarction (to prevent recurrent infarct). BASIC METABOLIC [id number] 12:43:00* Test Item Value Reference Range Comments SODIUM (test code=NA) 141 mEq/L 134-147 POTASSIUM (test code=K) 4.2 mEq/L 3.4-5.0 CHLORIDE (test code=CL) 109 mEq/L 100-108 CARBON DIOXIDE (test code=CO2) 28 mEq/L 21-33 ANION GAP (test code=GAP) 8 0-20 GLUCOSE (test code=GLU) 93 mg/dL 70-110 BLOOD UREA NITROGEN (test code=BUN) 15 mg/dL 7-18 GLOMERULAR FILTRATION RATE (test code=GFR) 70-80 CREATININE (test code=CREAT) mg/dL 0.6-1.3 CALCIUM (test code=CA) 9.2 mg/dL 8.0-10.5 CBC W/AUTO [id number] 12:42:00* Test Item Value Reference Range Comments WHITE BLOOD CELL (test code=WBC) 5.83 x10 3/uL 4.5-11.0 RED BLOOD CELL (test code=RBC) 4.40 x10 6/uL 3.54-5.02 HEMOGLOBIN (test code=HGB) 12.0 g/dL 11.0-15.0 HEMATOCRIT (test code=HCT) 39.0 % 33.0-45.0 MEAN CELL VOLUME (test code=MCV) 88.6 fL 81.0-99.0 MEAN CELL HGB (test code=MCH) 27.3 pg 27.0-33.0 MEAN CELL HGB CONCETRATION (test code=MCHC) 30.8 g/dL 33.0-37.0 RED CELL DISTRIBUTION WIDTH CV (test code=RDW) 13.9 % 11.5-14.5 RED CELL DISTRIBUTION WIDTH SD (test code=RDW-SD) 45.2 fL 37.0-54.0 PLATELET COUNT (test code=PLT) 348 x10 3/uL 150-400 MEAN PLATELET VOLUME (test code=MPV) 10.2 fL 7.0-9.0 NEUTROPHIL % (test code=NT%) 60.1 % 56.0-77.0 IMMATURE GRANULOCYTE % (test code=IG%) 0.5 % 0.0-2.0 LYMPHOCYTE % (test code=LY%) 28.8 % 14.0-32.0 MONOCYTE % (test code=MO%) 8.7 % 4.8-9.0 EOSINOPHIL % (test code=EO%) 1.0 % 0.3-3.7 BASOPHIL % (test code=BA%) 0.9 % 0.0-2.0 NUCLEATED RBC % (test code=NRBC%) 0.0 % 0-0 NEUTROPHIL # (test code=NT#) 3.50 x10 3/uL 2.0-7.6 IMMATURE GRANULOCYTE # (test code=IG#) 0.03 x10 3/uL 0.00-0.03 LYMPHOCYTE # (test code=LY#) 1.68 x10 3/uL 1.0-3.8 MONOCYTE # (test code=MO#) 0.51 x10 3/uL 0.1-0.8 EOSINOPHIL # (test code=EO#) 0.06 x10 3/uL 0.0-0.2 BASOPHIL # (test code=BA#) 0.05 x10 3/uL 0.0-0.2 NUCLEATED RBC # (test code=NRBC#) 0.00 x10 3/uL 0.0-0.1 MANUAL DIFF REQUIRED (test code=MDIFF) NO [id number] 16:30:00* Test Item Value Reference Range Comments D-DIMER (test code=DDIMER) 468 ng/mlFEU <=500 THROMBOSIS AND/OR PULMONARY EMBOLISM AND THE CLINICAL CUT- OFF VALUE FOR EXCLUSION (500 ng/mL FEU) OF THESE CONDITIONSIS VALIDATED BY THE ROTARY PUMP OPERATOR OF THE METHOD. A NEGATIVE D-DIMER RESULT WHEN COMBINED WITH A CLINICALASSESSMENT OF LOW PRETEST PROBABILITY HAS BEEN SHOWN TO HAVEA HIGH NEGATIVE PREDICTIVE VALUE OF DVT OR PE. D-DIMER VALUES >500 ng/mL FEU ARE NOT DIAGNOSTIC FOR DVT, PEor DIC WITHOUT OTHER CONFIRMATORY TESTS AND APPROPRIATECLINICAL EUALUATIONS. FAX [phone] METABOLIC [id number] 16:30:00* Test Item Value Reference Range Comments SODIUM (test code=NA) 144 mEq/L 134-147 POTASSIUM (test code=K) 3.6 mEq/L 3.4-5.0 CHLORIDE (test code=CL) 111 mEq/L 100-108 CARBON DIOXIDE (test code=CO2) 27 mEq/L 21-33 ANION GAP (test code=GAP) 10 0-20 GLUCOSE (test code=GLU) 126 mg/dL 70-110 BLOOD UREA NITROGEN (test code=BUN) 15 mg/dL 7-18 GLOMERULAR FILTRATION RATE (test code=GFR) 61.4 70-80 Units of measure=ml/min/1.73 m2 CREATININE (test code=CREAT) 0.9 mg/dL 0.6-1.3 TOTAL PROTEIN (test code=PROT) 6.7 g/dL 6.4-8.2 ALBUMIN (test code=ALB) 3.40 g/dL 3.4-5.0 CALCIUM (test code=CA) 8.5 mg/dL 8.0-10.5 BILIRUBIN TOTAL (test code=BILT) 0.40 mg/dL 0.0-1.0 SGOT/AST (test code=AST) 17 IUnit/L 15-37 SGPT/ALT (test code=ALT) 22 IUnit/L 15-65 ALKALINE PHOSPHATASE TOTAL (test code=ALKP) 152 IUnit/L 20-125 FAX [id number] W/AUTO [id number] 16:16:00* Test Item Value Reference Range Comments WHITE BLOOD CELL (test code=WBC) 6.46 x10 3/uL 4.5-11.0 RED BLOOD CELL (test code=RBC) 4.10 x10 6/uL 3.54-5.02 HEMOGLOBIN (test code=HGB) 11.6 g/dL 11.0-15.0 HEMATOCRIT (test code=HCT) 37.6 % 33.0-45.0 MEAN CELL VOLUME (test code=MCV) 91.7 fL 81.0-99.0 MEAN CELL HGB (test code=MCH) 28.3 pg 27.0-33.0 MEAN CELL HGB CONCETRATION (test code=MCHC) 30.9 g/dL 33.0-37.0 RED CELL DISTRIBUTION WIDTH CV (test code=RDW) 13.2 % 11.5-14.5 RED CELL DISTRIBUTION WIDTH SD (test code=RDW-SD) 44.4 fL 37.0-54.0 PLATELET COUNT (test code=PLT) 327 x10 3/uL 150-400 MEAN PLATELET VOLUME (test code=MPV) 10.2 fL 7.0-9.0 NEUTROPHIL % (test code=NT%) 64.0 % 56.0-77.0 IMMATURE GRANULOCYTE % (test code=IG%) 0.2 % 0.0-2.0 LYMPHOCYTE % (test code=LY%) 26.3 % 14.0-32.0 MONOCYTE % (test code=MO%) 8.4 % 4.8-9.0 EOSINOPHIL % (test code=EO%) 0.3 % 0.3-3.7 BASOPHIL % (test code=BA%) 0.8 % 0.0-2.0 NUCLEATED RBC % (test code=NRBC%) 0.0 % 0-0 NEUTROPHIL # (test code=NT#) 4.14 x10 3/uL 2.0-7.6 IMMATURE GRANULOCYTE # (test code=IG#) 0.01 x10 3/uL 0.00-0.03 LYMPHOCYTE # (test code=LY#) 1.70 x10 3/uL 1.0-3.8 MONOCYTE # (test code=MO#) 0.54 x10 3/uL 0.1-0.8 EOSINOPHIL # (test code=EO#) 0.02 x10 3/uL 0.0-0.2 BASOPHIL # (test code=BA#) 0.05 x10 3/uL 0.0-0.2 NUCLEATED RBC # (test code=NRBC#) 0.00 x10 3/uL 0.0-0.1 MANUAL DIFF REQUIRED (test code=MDIFF) NO FAX [phone] XR CHEST 2 [id number] 15:51:00 FAX: Ronald Padron MD [phone] [place]: St: REG Name: Miguel Ángel PRINCESS LAL [facility] : [birth year] Age/S: 73/F [address] [place] [address] Unit #: [id number] Loc: [place] [address] Phys: Ronald Worley MD Acct: [id number] Dis Date: Status: REG CLI PHONE #: [phone] Exam Date: 09/08/2018 1538 FAX #: [phone] Reason: R07.9, CHEST PAIN, UNSPECIFIED. EXAMS: CPT CODE: [id number] XR CHEST 2 V 78373 CLINICAL HISTORY: R07.9, chest pain, unspecified. COMPARISON: May 24, 2013. PA and lateral films of the chest demonstrate tenotomy sutures in place. Heart size is normal. There is mild tortuosity of thoracic aorta. Lung roche demonstrate no evidence of pneumonia or congestive failure. M inimal degenerative changes are present in dorsal spine with anterior oste ophytes. IMPRESSION: No evidence of pneumonia or congestive fail ure is seen. at 1553 Reported and signed by: David Davis M.D. CC: Ronald Worley MD Technologist: RT Darcie Ayoub (R) te/Time/By: 09/08/2018 (4681) : By: Stephany Roman Print D/T: S: 09/08 (6779) PAGE 1 Signed Report
[2019-09-07 12:25] VITALS: BP 137/69
--- NOTE | 2019-10-22 16:07 | Operative Report ---
DATE OF PROCEDURE: 09/07/2019 SURGEON: Raji Buchanan MD PREOPERATIVE DIAGNOSIS: Recurrent urinary tract infections. POSTOPERATIVE DIAGNOSIS: Recurrent urinary tract infections, possible interstitial cystitis. OPERATIVE PROCEDURES PERFORMED: 1. Cystoscopy. 2. Bladder biopsy. ANESTHESIA: General anesthesia. ESTIMATED BLOOD LOSS: Minimal. INDICATION: Ms. Gris Angel is a 74-year-old woman with a history of persistent bladder pain, recurrent urinary tract infections. She now presents for potential diagnosis of this problem. PROCEDURE IN DETAIL: The patient brought to the operating room, placed in supine position. After administration of general anesthesia, was placed in dorsal lithotomy position and prepped and draped in the usual sterile fashion. Cystourethroscopy was performed using 21-British cystoscope. The anterior and posterior urethra were noted to be normal. The bladder was entered without difficulty. Upon entrance into the bladder, the ureteral orifices were in a normal anatomical position and produced clear efflux. The bladder mucosa appeared normal with bladder emptied, but with the bladder filling there was some glomerulations appreciated on the posterior wall. There was no harley Hunner ulcers. The bladder capacity appeared slightly reduced, but was approximately 400 mL at normal capacity. Using the cold-cup bladder biopsy forceps, biopsies were obtained from the posterior wall of the right and left lateral raymundo. One biopsy was taken through the presumed glomerulations. These sites were all fulgurated using the Bugbee electrode. The bladder was then drained in its entirety and the cystoscope and sheath were removed. The patient was returned to supine position and anesthesia was reversed. She was transferred to a bed and taken to the postanesthesia care unit in good condition. Of note, the needle and instrument count were correct at the conclusion of the case. Raji Buchanan MD HLW/MODL /[id number]
== END | disposition home or self-care (01) ==
LOC: OR 08:12
PROVIDERS: ATTEND Urology
DX: N30.20 Other chronic cystitis without hematuria (principal); Z88.5 Allergy status to narcotic agent; Z88.2 Allergy status to sulfonamides; Z88.1 Allergy status to other antibiotic agents; Z91.041 Radiographic dye allergy status; Z01.810 Encounter for preprocedural cardiovascular examination; Z01.812 Encounter for preprocedural laboratory examination; Z01.811 Encounter for preprocedural respiratory examination; Z86.19 Personal history of other infectious and parasitic diseases; Z86.73 Personal history of transient ischemic attack (TIA), and cerebral infarction without residual deficits; I25.2 Old myocardial infarction; Z95.5 Presence of coronary angioplasty implant and graft; I10 Essential (primary) hypertension; I25.119 Atherosclerotic heart disease of native coronary artery with unspecified angina pectoris
CPT/HCPCS: 36415; 52204; 71046; 80053; 85025; 85610; 85730; 88305; 88313; 93005; J0696; J2001; J2405; J2704; J3010